=== PATIENT | male | born 1980 | race Caucasian/White ===

== ENCOUNTER → 2017-12-20 | Outpatient (CLI) | payer OTHER ==
[~2017-12-20] VITALS: Ht 182.9 cm; Wt 90.7 kg
[~2017-12-20] MED LIST: SEPTRA DS TABLE1 TAB PO
== END | disposition home or self-care (01) ==
LOC: PPHC 10:18
DX: Z00.00 Encounter for general adult medical examination without abnormal findings (principal); Z00.8 Encounter for other general examination

== ENCOUNTER 2018-01-10 10:18 | Outpatient (CLI) | payer OTHER | END 2018-01-10 10:28 | disposition home or self-care (01) | LOC: LAB 10:18 | DX: Z11.3 Encounter for screening for infections with a predominantly sexual mode of transmission (principal) ==